=== PATIENT | male | born 1995 | race Caucasian/White ===

== ENCOUNTER 2016-10-24 18:05 | Emergency (ER) | payer OTHER ==
--- NOTE | 2016-10-24 18:24 | Emergency Department Record ---
History of Present Illness - General Chief complaint: Lower Extremity Pain Stated complaint: R FOOT INJURY Time Seen by Provider: 10/24/16 18:21 Source: Patient Mode of Arrival: Ambulatory Limitations: No limitations - History of Present Illness Initial comments: The patient had a minature horse step on his R foot 30 minutes ago. Since it has been very painful and difficult to walk on. Complaint: Extremity pain Onset/Timin -: Year(s) Location: Right Consistency: Constant Improves with: Nothing Worsens with: Weight bearing Associated Symptoms: Denies other symptoms - Related Data Home Medications Medication Instructions Recorded Confirmed Last Taken No Home Med [NO HOME MEDS] 10/24/16 10/24/16 Unknown Allergies Allergy/AdvReac Type Severity Reaction Status Date / Time No Known Drug Allergies Allergy Verified 10/24/16 18:15 Travel Screening - Travel/Exposure Within Last 30 Days Have you traveled within the last 30 days?: No - Travel/Exposure Within Last Year Have you traveled outside the [place] in the last year?: No - Additonal Travel Details Have you been exposed to anyone with a communicable illness?: No - Travel Symptoms Symptom Screening: None Review of Systems Constitutional: Denies: Chills, Fever Past Medical History - SOCIAL HISTORY Smoking Status: Current some day smoker Alcohol Use: None Drug Use: None - RESPIRATORY Hx Respiratory Disorders: No - CARDIOVASCULAR Hx Cardio Disorders: Yes Hx Palpitations: Yes Comment:: great vessels at 6 mos old. - NEURO Hx Neuro Disorders: No - GI Hx GI Disorders: No - Hx Genitourinary Disorders: No - ENDOCRINE Hx Endocrine Disorders: No - MUSCULOSKELETAL Hx Musculoskeletal Disorders: No - PSYCH Hx Psych Problems: No - HEMATOLOGY/ONCOLOGY Hx Hematology/Oncology Disorders: No Family Medical History Any Significant Family History?: No Physical Exam - General General Appearance: Alert, Cooperative, No acute distress - Head Head exam: Atraumatic, Normocephalic, Normal inspection - Eye Eye exam: Normal appearance, PERRL - Extremities Extremities exam: Full ROM (There is no tenderness to the R ankle.), Normal capillary refill, Tenderness (There is diffuse tenderness to the dorsal midfoot. ), Other (The R DP pulse is normal.). negative: Normal inspection (There is bruising to the dorsal R foot over the midfoot mainly and proximal lateral metatarsals with slight swelling.) Course Vital Signs 10/24/16 18:07 Temperature 97.9 F Pulse Rate 106 H Respiratory 20 Rate Blood Pressure 132/69 Pulse Ox 98 - Reevaluation(s) Reevaluation #1: I did discuss the case with the patient and the need for F/U if not better in 3 days. He is to ice and elevate the foot when possible and use the hard soled shoe for 7 days. 10/24/16 18:42 Medical Decision Making - Data Complexity MDM Data: X-Ray Ordered and/or Reviewed - Radiology Data Radiology results: Report reviewed (R foot: Neg.) Disposition Disposition: Discharge Clinical Impression: Contusion of foot, right Qualifiers: Encounter type: initial encounter Qualified Code(s): S90.31XA - Contusion of right foot, initial encounter Disposition: Home, Self-Care Condition: (1) Good Instructions: Foot Contusion (ED) Additional Instructions: Please wear the hard soled shoe for 5-7 days and ice and elevate the foot when possible the next 48 hours. Take Advil for pain. Please see your PCP if not better by next week. Return to the ER for any increased pain, swelling, or bruising. Forms: Patient Portal Access Time of Disposition: 18:44
[2016-10-24] MEDS: IBUPROFEN 600 MG TABLET PO ONE (18:55)
--- NOTE | 2016-10-26 10:09 | RADIOLOGY REPORT ---
EXAM: RIGHT FOOT HISTORY: INJURY. TECHNIQUE: Three views of the right foot were performed. FINDINGS: There is no evidence of fracture or dislocation. No lytic or blastic lesion. IMPRESSION: NEGATIVE RIGHT FOOT EXAMINATION. JOB NUMBER: [id number] [facility]
== END 2016-10-24 19:00 | disposition home or self-care (01) ==
LOC: ER 18:05
DX: S90.31XA Contusion of right foot, initial encounter (principal); S90.121A Contusion of right lesser toe(s) without damage to nail, initial encounter; W55.19XA Other contact with horse, initial encounter
CPT/HCPCS: 99283

== ENCOUNTER 2017-02-17 01:51 | Emergency (ER) | payer OTHER ==
--- NOTE | 2017-02-17 02:05 | Emergency Department Record ---
History of Present Illness - General Chief Complaint: Chest Pain Stated Complaint: CHEST PAIN Time Seen by Provider: 02/17/17 02:03 Source: Patient Mode of Arrival: Ambulatory Limitations: No limitations - History of Present Illness Initial Comments: The patient is here due to a one hour hx of CP. The onset was at rest and the patient describes the pain as a sharp prickly pain over the anterior L and R chest areas along with the sternum. The pain is intermittent and lasts seconds. He denies any SOB, NIKKI, sweating, nausea, or dizziness. The patient states the pain now is mostly gone. 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 He has had check ups regularly up until 2 years ago. The patient states he has had similar pain in the past in middle school and it just resolved. MD Complaint: Chest pain Onset/Timin -: Minutes(s) Onset: Other Pain Location: Substernal, Left chest, Right chest Pain Radiation: None Severity: Mild, Moderate Severity scale (1-10): 4 Quality: Sharp Consistency: Intermittent Improves With: Nothing Worsens With: Exertion Context: Other Treatments Prior to Arrival: None - Related Data Allergies Allergy/AdvReac Type Severity Reaction Status Date / Time Iodinated Contrast- Oral and Allergy ANAPHYLAXIS Verified 02/17/17 02:32 IV Dye Travel Screening - Travel/Exposure Within Last 30 Days Have you traveled within the last 30 days?: No - Travel Symptoms Symptom Screening: None Review of Systems Constitutional: Denies: Chills, Fever Past Medical History - SOCIAL HISTORY Smoking Status: Current some day smoker Alcohol Use: None Drug Use: None - RESPIRATORY Hx Respiratory Disorders: No - CARDIOVASCULAR Hx Cardio Disorders: Yes Hx Chest Pain: Yes Hx Palpitations: Yes Comment:: great vessels at 6 mos old. - NEURO Hx Neuro Disorders: No - GI Hx GI Disorders: No - Hx Genitourinary Disorders: No - ENDOCRINE Hx Endocrine Disorders: No - MUSCULOSKELETAL Hx Musculoskeletal Disorders: No - PSYCH Hx Psych Problems: No - HEMATOLOGY/ONCOLOGY Hx Hematology/Oncology Disorders: No Family Medical History Any Significant Family History?: No Physical Exam - General General Appearance: Alert, Oriented x3, Cooperative, No acute distress - Head Head exam: Atraumatic, Normocephalic, Normal inspection - Eye Eye exam: Normal appearance, PERRL - Neck Neck exam: Normal inspection, Full ROM. negative: Tenderness - Respiratory Respiratory exam: Normal lung sounds bilaterally. negative: Respiratory distress - Cardiovascular Cardiovascular Exam: Regular rate, Normal rhythm, Systolic murmur (3/6 MADI. ( chronic per pt)). negative: Normal heart sounds - GI/Abdominal GI/Abdominal exam: Soft, Normal bowel sounds. negative: Tenderness - Extremities Extremities exam: Normal inspection, Full ROM, Normal capillary refill. negative: Tenderness - Neurological Neurological exam: Alert, Normal gait. negative: Abnormal gait, Motor sensory deficit - Psychiatric Psychiatric exam: Anxious. negative: Agitated, Depressed - Skin Skin exam: negative: Rash Course Vital Signs 02/17/17 01:53 Temperature 97.9 F Pulse Rate 57 L Respiratory 20 Rate Blood Pressure 128/87 Pulse Ox 100 - Reevaluation(s) Reevaluation #1: The patient is doing better. Presently his pain has completely resolved. He denies any discomfort, trouble breathing, SOB, or sweating. 02/17/17 02:46 Reevaluation #2: The patient is doing very well at this time. He denies any pain or discomfort and is resting comfortably. 02/17/17 03:29 Reevaluation #3: The patient is doing well at this time. He denies any pain or discomfort. I did explain to him that his workup is normal at this time and it does not appear that there is anything dangerous occurring presently. Due to his extensive cardiac hx I did recommend hospital transfer to [place] where his records and Cardiology group are located. The patient is refusing that plan and would like to go home and leave [facility]. I explained to him that by leaving and NOT being admitted he could go home and have an [place], stroke, be disabled and could . The patient understands and accepts the risks. He presently has proper decision making capacity and was told to return to the ER at any time if needed. 02/17/17 03:38 Medical Decision Making - Data Complexity MDM Data: X-Ray Ordered and/or Reviewed - Lab Data Result diagrams: 02/17/17 02:20 02/17/17 02:45 - EKG Data -: EKG Interpreted by Me EKG: No Acute Changes (Poss. Right Ventricular Hypertrophy.) - Radiology Data Radiology results: Image reviewed (CXR: No acute disease pathology identified.) Disposition Disposition: Discharge Clinical Impression: Chest discomfort Disposition: Against Medical Advice Condition: (1) Good Instructions: Chest Pain (ED) Additional Instructions: Please see your Biomedical Engineering Supervisor BERNARDINO. Return to the ER for any return of the pain or any trouble breathing or sweating. Forms: Patient Portal Access Time of Disposition: 03:37 Quality - Quality Measures Quality Measures: N/A - Blood Pressure Screening View Details: Yes Does Patient Have Any of the Following: No Blood Pressure Classification: Pre-Hypertensive BP Reading Systolic Measurement: 128 Diastolic Measurement: 87 Screening for High Blood Pressure: < Pre-Hypertensive BP, F/U Documented > [ [id number]] Pre-Hypertensive Follow-up Interventions: Referral to alternative/primary care provider.
[2017-02-17] MEDS ORDERED: ACETAMINOPHEN 325 MG TAB PO ONE (02:14)
[2017-02-17 02:36] LABS: EOS % 2.8 % (0-6); GRAN % 47.2 % (47-80); HEMATOCRIT 45.2 % (42.0-52.0); HEMOGLOBIN 15.6 gm/dl (14.0-18.0); LYMPH % 35.1 % (16-45); MEAN CELL VOLUME 88.5 fl (81-97); MEAN CORPUSCULAR HEMOGLOBIN 30.5 pg (27-33); MEAN CORPUSCULAR HGB CONC 34.5 g/dl (32-36); MEAN PLATELET VOLUME 11.9 fl (7.4-10.4); MONO % 13.9 % (0-9); PLATELET COUNT 160 K/uL (130-400); RED BLOOD COUNT 5.11 M/uL (4.40-5.70); RED CELL DISTRIBUTION WIDTH 12.4 % (11.5-14.5)
[2017-02-17 03:04] LABS: INR 0.99; PARTIAL THROMBOPLASTIN TIME 24.7 SECONDS (24.5-39.1); PROTHROMBIN TIME (PATIENT) 10.7 SECONDS (9.5-12.1)
[2017-02-17 03:25] LABS: BLOOD UREA NITROGEN 17 mg/dL (6-20); CKMB 2.2 ng/mL (<6.73); CREATINE PHOSPHOKINASE 136 U/L (39-308); CREATININE 0.8 mg/dL (0.7-1.2); EST GLOMERULAR FILTRATION RATE > 60 mL/min; GLUCOSE,RANDOM 115 mg/dL (74-109)
[2017-02-17 03:32] LABS: TROPONIN I < 0.30 ng/mL (0.00-0.300)
--- NOTE | 2017-02-18 10:39 | RADIOLOGY REPORT ---
DATE: 02/17/2017 at 2:26. EXAM: TWO VIEW, CHEST. HISTORY: Left lower chest pain for one hour. COMPARISON: None. TECHNIQUE: Two views of the chest were obtained. FINDINGS: Sternal wires are present. The lungs are clear. Cardiac silhouette , diaphragm, and osseous structures are unremarkable. IMPRESSION: NEGATIVE CHEST. JOB NUMBER: [id number] [facility]
== END 2017-02-17 03:44 | disposition left against medical advice (07) ==
LOC: ER 01:51
DX: R07.2 Precordial pain (principal); F17.210 Nicotine dependence, cigarettes, uncomplicated; Z48.812 Encounter for surgical aftercare following surgery on the circulatory system
CPT/HCPCS: 71020; 80048; 82550; 82553; 84484; 85025; 85610; 85730; 93005; 93010; 99284